=== PATIENT | male | born 1965 | race African-American/Black ===

== ENCOUNTER 2018-07-22 15:04 | Emergency (ER) | payer OTHER ==
[~2018-07-22] VITALS: Ht 180.3 cm; Wt 99.8 kg
[~2018-07-22 15:04] MED LIST: JANUMET 50-5001 EACH PO; METFORMIN HCL500 MG PO
[2018-07-22] MEDS ORDERED: INVOKANA100 MG PO (15:38)
[2018-07-22] MEDS ORDERED: ERYTHROMYCIN E3.5 G3 OPHTHALMIC (16:20)
[2018-07-22 16:26] VITALS: BP 111/65
== END 2018-07-22 16:30 | disposition home or self-care (01) ==
LOC: ER 15:04
DX: B30.9 Viral conjunctivitis, unspecified (principal); J30.9 Allergic rhinitis, unspecified; E11.9 Type 2 diabetes mellitus without complications